=== PATIENT | female | born 1950 | race Caucasian/White ===

== ENCOUNTER → 2017-07-17 | Outpatient (RCR) | payer OTHER | END | disposition home or self-care (01) | LOC: PTY 07-01 11:00 | DX: M75.82 Other shoulder lesions, left shoulder (principal) | CPT/HCPCS: 97110; 97140; 97161; G0283 ==

== ENCOUNTER 2017-07-29 11:03 | Outpatient (RCR) | payer OTHER | END 2017-08-17 | disposition home or self-care (01) | LOC: PTY 11:03 | DX: M75.82 Other shoulder lesions, left shoulder (principal) ==

== ENCOUNTER 2017-08-25 10:00 | Outpatient (RCR) | payer OTHER | END 2017-09-17 | disposition home or self-care (01) | LOC: PTY 10:00 | DX: M75.82 Other shoulder lesions, left shoulder (principal) | CPT/HCPCS: 97035; 97110; G0283 ==